=== PATIENT | female | born 1970 | race Caucasian/White ===

== ENCOUNTER 2018-01-26 14:00 | Emergency (ER) | payer OTHER, MEDICAID ==
[~2018-01-26] VITALS: Ht 167.6 cm; Wt 92.2 kg
[~2018-01-26 14:00] MED LIST: ALBU6.7H INH
[2018-01-26 14:16] VITALS: BP 163/64
[2018-01-26 14:52] LABS: BASOPHILS % (AUTO) 0.4 % (0-1); EOSINOPHILS # (AUTO) 0.2 X10'3 (0-0.9); EOSINOPHILS % (AUTO) 1.8 % (0-6); HEMATOCRIT 45.1 % (35.0-45.0); HEMOGLOBIN 15.5 g/dl (12.0-16.0); MEAN CORPUSCULAR HEMOGLOBIN 29.9 PG (27.0-31.0); MEAN CORPUSCULAR HGB CONC 34.4 % (33.0-36.5); MEAN CORPUSCULAR VOLUME 86.8 FL (78-98); MEAN PLATELET VOLUME 8.8 FL (7.4-10.4); MONOCYTES # (AUTO) 0.7 X10'3 (0-0.9); MONOCYTES % (AUTO) 7.9 % (2-12); NEUTROPHILS # (AUTO) 6.4 X10'3 (1.8-7.7); NEUTROPHILS % (AUTO) 68.9 % (42-75); PLATELET COUNT 246 X10'3 (140-440); RED BLOOD COUNT 5.19 X10'6 (4.20-5.60); RED CELL DISTRIBUTION WIDTH 13.5 % (11.5-14.5); WHITE BLOOD COUNT 9.3 X10'3 (4.5-11.0)
[2018-01-26 15:12] LABS: ALANINE AMINOTRANSFERASE 29 U/L (12-78); ALKALINE PHOSPHATASE 90 IU/L (46-116); ANION GAP 8 (8-16); ASPARTATE AMINO TRANSFERASE 18 U/L (10-37); BILIRUBIN,TOTAL 0.3 MG/DL (0.1-1.0); BLOOD UREA NITROGEN 9 MG/DL (7-18); CALCIUM 9.5 MG/DL (8.5-10.1); CHLORIDE 105 MMOL/L (99-107); CREATININE 0.82 MG/DL (0.40-0.90); GLUCOSE 95 MG/DL (70-104); SODIUM 142 MMOL/L (135-145); TOTAL CARBON DIOXIDE 28.6 MMOL/L (24-32); eGFR 74 ML/MIN
[2018-01-26] MEDS ORDERED: ONDA4TAB12 PO (15:52)
[2018-01-26] MEDS ORDERED: IBUP-1986 PO (15:52)
[2018-01-26] MEDS ORDERED: CYCL-1 PO (15:52)
[2018-01-26] MEDS ORDERED: HYDR-3965 PO (15:52)
[2018-01-26] MEDS ORDERED: DICL100G15 TOP (15:52)
[2018-01-26] MEDS ORDERED: ondansetron 4mg rapidly disintigrating tab PO ONE (15:55)
[2018-01-26] MEDS ORDERED: diazepam 5mg tablet PO ONE (15:55)
[2018-01-26] MEDS ORDERED: ketorolac tromethamine 15mg/ml inj. IM ONE (15:55)
[2018-01-26] MEDS ORDERED: HYDROcodone/acetaminophen 10/325mg tab PO ONE (15:55)
== END 2018-01-26 16:24 | disposition home or self-care (01) ==
LOC: ER 14:01
DX: M43.6 Torticollis (principal); S09.90XA Unspecified injury of head, initial encounter; M48.02 Spinal stenosis, cervical region; F07.81 Postconcussional syndrome; F17.200 Nicotine dependence, unspecified, uncomplicated; J44.9 Chronic obstructive pulmonary disease, unspecified; G89.29 Other chronic pain; M50.223 Other cervical disc displacement at C6-C7 level; V89.2XXA Person injured in unspecified motor-vehicle accident, traffic, initial encounter; Y93.89 Activity, other specified; Y92.89 Other specified places as the place of occurrence of the external cause; Y99.8 Other external cause status
CPT/HCPCS: 36415; 70450; 71046; 72125; 80053; 84484; 85025; 93005; 96372; 99285; J1885

== ENCOUNTER 2018-04-30 16:01 | Emergency (ER) | payer MEDICAID ==
[~2018-04-30] VITALS: Ht 167.6 cm; Wt 89.8 kg
[~2018-04-30 16:01] MED LIST changes: +CYCL-1 PO; +DICL100G15 TOP; +IBUP-1986 PO; +ONDA4TAB12 PO
[2018-04-30] MEDS ORDERED: acetaminophen 325mg tablet PO ONE (16:15)
[2018-04-30 16:27] LABS: CLARITY,URINE SLIGHTLY CLOUDY (Clear); COLOR,URINE YELLOW (Yellow); GLUCOSE, URINE NEGATIVE (Neg); KETONES,URINE 15 mg/dl (Neg); LEUKOCYTE ESTERASE ,URINE LARGE (Neg); NITRITES, URINE POSITIVE (Neg); OCCULT BLOOD,URINE MODERATE (Neg); PROTEIN,URINE TRACE mg/dl (Neg); UROBILINOGEN,URINE 0.2 E.U/dL (0.2-1.0)
[2018-04-30 16:31] LABS: UA COLLECTION TYPE CLN CATCH MIDSTREAM
[2018-04-30 16:33] LABS: BACTERIA,URINE 2+ /HPF (Neg); MUCUS STRANDS NONE SEEN /LPF (Neg); SQUAMOUS EPITHELIAL CELL,UR NONE SEEN /LPF (FEW); WBC,URINE 30-50 /HPF (0-4)
[2018-04-30] MEDS ORDERED: normal saline 1000ml 1,000 ML IV STA (17:05)
[2018-04-30] MEDS ORDERED: ciprofloxacin lact 400MG/200ML 200 ML IV ONE (17:05)
[2018-04-30] MEDS ORDERED: acetaminophen 325mg tablet PO STA (17:06)
[2018-04-30] MEDS ORDERED: ibuprofen tablet 400 MG TABLET PO ONE (17:25)
[2018-04-30] MEDS ORDERED: PHEN-716 PO (18:49)
[2018-04-30] MEDS ORDERED: CIPR-259 PO (18:49)
[2018-04-30] MEDS ORDERED: ketorolac trometh. 30mg/ml inj. IV ONE (19:10)
[2018-04-30] MEDS ORDERED: normal saline 1000ML IV soln IVB ONE (19:10)
[2018-04-30 20:01] VITALS: BP 90/55
== END 2018-04-30 20:06 | disposition home or self-care (01) ==
LOC: ER 16:02
DX: N10 Acute pyelonephritis (principal); J44.9 Chronic obstructive pulmonary disease, unspecified; M19.90 Unspecified osteoarthritis, unspecified site; G89.29 Other chronic pain
CPT/HCPCS: 81001; 87088; 96365; 96375; 99284; J0744; J1885; J7030; 87077; 87186